=== PATIENT | male | born 1995 ===

== ENCOUNTER 2017-11-05 16:39 | Observation (INO) | payer OTHER ==
[~2017-11-05] VITALS: Ht 180.3 cm; Wt 103.1 kg
[2017-11-05 21:03] VITALS: BP 134/70; PULSE 66; TEMP 98.2
[2017-11-05 23:36] VITALS: BP 150/66; PULSE 91; TEMP 98.5
[2017-11-06 03:27] VITALS: BP 130/56; PULSE 60; TEMP 97.6
[2017-11-06 06:59] LABS: EOS # 0.1 (0.0-0.7); EOS % 2.4 % (0-4.0); GRAN # 1.8 (1.4-6.5); GRAN % 53.3 % (42.2-75.2); HEMATOCRIT 37.8 % (36.0-47.0); HEMOGLOBIN 12.8 g/dl (12.5-16.1); LYMPH % 30.5 % (20.0-51.0); MEAN CELL VOLUME 90 fl (80.0-95.0); MEAN CORPUSCULAR HEMOGLOBIN 30 pg (26.0-32.0); MEAN CORPUSCULAR HGB CONC 34 g/dl (33.0-37.0); MEAN PLATELET VOLUME 10.3 fl (7.4-10.4); MONO # 0.5 (0.1-0.6); MONO % 13.5 % (1.7-9.3); PLATELET COUNT 158 K/mm3 (130-400); RED BLOOD COUNT 4.21 M/mm3 (4.20-5.60); REDCELL DISTRIBUTION WIDTH-CV 11.7 % (11.5-14.5)
[2017-11-06 07:06] LABS: C-REACTIVE PROTEIN 3.1 mg/dL (0.0-0.9); CALCIUM 7.8 mg/dL (8.4-10.2); CREATININE, serum 0.97 mg/dL (0.66-1.25); MAGNESIUM 1.8 mg/dL (1.6-2.3); POTASSIUM 3.4 mmol/L (3.4-5.0)
[2017-11-06 07:14] LABS: TROPONIN-I 0.03 ng/mL (0.000-0.034)
[2017-11-06 07:30] LABS: ERYTHROCYTE SEDIMENTATION RATE 5 mm/hr (0-15)
[2017-11-06 08:12] VITALS: BP 112/54; PULSE 88; TEMP 98.4
[2017-11-06 12:07] VITALS: BP 134/71; PULSE 71; TEMP 97.7
== END 2017-11-06 14:44 | disposition home or self-care (01) ==
LOC: MEDICAL 16:39
PROVIDERS: Nurse Practitioner
DX: F17.210 Nicotine dependence, cigarettes, uncomplicated (principal); J45.909 Unspecified asthma, uncomplicated; Z82.49 Family history of ischemic heart disease and other diseases of the circulatory system; Z83.3 Family history of diabetes mellitus
CPT/HCPCS: J1650; J7030